=== PATIENT | male | born 1935 | race Caucasian/White ===

== ENCOUNTER → 2017-09-08 | Outpatient (CLI) | payer MEDICARE ==
[~2017-09-08] MED LIST: IOHEXOL 300 MG/ML 100ML VIAL.; LIDOCAINE WITH 8.4% SOD BICARB 3 ML DISP.SYRIN.; MIDAZOLAM HCL/PF 2 MG/2 ML VIAL.; fentaNYL PF VIAL 100 MCG/2 ML VIAL
[2017-09-08 13:11] LABS: ADD MAN DIFF? NO
[2017-09-08 13:15] LABS: BASO % 1 % (0-3); EOS # 0.2 x10^3/uL (0.0-0.7); EOS % 3 % (0-3); HEMATOCRIT 37.6 % (39.0-53.0); HEMOGLOBIN 12.6 g/dL (13.0-17.5); LYMPH # 2.3 x10^3/uL (1.0-4.8); LYMPH % 33 % (24-48); MEAN CORPUSCULAR HEMOGLOBIN 30 pg (25-35); MEAN CORPUSCULAR HGB CONC 34 g/dL (31-37); MEAN CORPUSCULAR VOLUME 89 fL (79-100); MONO # 0.6 x10^3/uL (0.0-1.1); MONO % 8 % (0-9); NEUT % 56 % (31-73); PLATELET COUNT 206 x10^3/uL (140-400); RED BLOOD COUNT 4.22 x10^6/uL (4.30-5.70); RED CELL DISTRIBUTION WIDTH 14.5 % (11.5-14.5); WHITE BLOOD COUNT 7.1 x10^3/uL (4.0-11.0)
[2017-09-08 13:25] LABS: INR 1.1 (0.8-1.1); PROTHROMBIN TIME PATIENT 13.2 SEC (11.7-14.0)
== END | disposition home or self-care (01) ==
LOC: INTRAD 11:54
DX: K57.80 Diverticulitis of intestine, part unspecified, with perforation and abscess without bleeding (principal); E78.00 Pure hypercholesterolemia, unspecified; M19.90 Unspecified osteoarthritis, unspecified site; F17.200 Nicotine dependence, unspecified, uncomplicated; Z86.39 Personal history of other endocrine, nutritional and metabolic disease; Z98.41 Cataract extraction status, right eye; Z98.42 Cataract extraction status, left eye; Z87.39 Personal history of other diseases of the musculoskeletal system and connective tissue
CPT/HCPCS: 36415; 74150; 85025; 85610

== ENCOUNTER → 2017-09-22 | Outpatient (CLI) | payer MEDICARE ==
[~2017-09-22] MED LIST changes: +IOHEXOL 240 MG/ML 50ML VIAL. PO; -IOHEXOL 300 MG/ML 100ML VIAL.; +IOHEXOL 300 MG/ML 100ML VIAL. IV; -LIDOCAINE WITH 8.4% SOD BICARB 3 ML DISP.SYRIN.; -MIDAZOLAM HCL/PF 2 MG/2 ML VIAL.; -fentaNYL PF VIAL 100 MCG/2 ML VIAL
[2017-09-22] MEDS: IOHEXOL 240 MG/ML 50ML VIAL. PO ×2 (12:20)
[2017-09-22] MEDS: IOHEXOL 300 MG/ML 100ML VIAL. IV ×2 (12:20)
== END | disposition home or self-care (01) ==
LOC: CT 10:46
DX: L02.818 Cutaneous abscess of other sites (principal); M51.36 Other intervertebral disc degeneration, lumbar region
CPT/HCPCS: 74177

== ENCOUNTER → 2017-10-16 | Outpatient (CLI) | payer MEDICARE ==
[~2017-10-16] MED LIST changes: +CONTRAST GIVEN MC; -IOHEXOL 240 MG/ML 50ML VIAL. PO; -IOHEXOL 300 MG/ML 100ML VIAL. IV
[2017-10-16] MEDS: IOHEXOL 240 MG/ML 50ML VIAL. PO (11:49)
[2017-10-16] MEDS: IOHEXOL 300 MG/ML 100ML VIAL. IV (11:49)
== END | disposition home or self-care (01) ==
LOC: CT 10:21
DX: K57.20 Diverticulitis of large intestine with perforation and abscess without bleeding (principal); N42.89 Other specified disorders of prostate
CPT/HCPCS: 74177; Q9966; Q9967

== ENCOUNTER 2018-09-19 21:13 | Emergency (ER) | payer MEDICARE ==
[~2018-09-19] VITALS: Ht 182.9 cm; Wt 70.3 kg
[~2018-09-19 21:13] MED LIST changes: +ASPI-482 PO; +ATOR10TA60 PO; +ATOR20TA58 PO; +ATROPINE 0.5 MG/5 ML DISP.SYRINGE. ONE; +CALC1TAB PO; +CALCIUM CHLORIDE 1,000 MG/10 ML DISP.SYRIN ONE; +CIPR500T94 PO; -CONTRAST GIVEN MC; +EPINEPHrine SYRINGE 1 MG/10 ML SYRINGE ONE; +FISH1CAP PO; +FLEC100T PO; +FOLI0.4T2 PO; +LEVO50TA5 PO; +MECL25TA3 PO; +METR-34 PO; +MULT-658 PO; +NAPR220T70 PO; +PROP20TA PO; +SODIUM BICARB ADULT 8.4% 50 MEQ/50 ML DISP.SYRIN. ONE; +TAMS0.4C2 PO; +TIZA4TAB PO
[2018-09-19 21:39] LABS: BASO # 0.1 x10^3/uL (0.0-0.2); BASO % 0 % (0-3); EOS # 0.2 x10^3/uL (0.0-0.7); EOS % 1 % (0-3); HEMATOCRIT 35.1 % (39.0-53.0); HEMOGLOBIN 11.5 g/dL (13.0-17.5); LYMPH # 7.7 x10^3/uL (1.0-4.8); LYMPH % 48 % (24-48); MEAN CORPUSCULAR HEMOGLOBIN 30 pg (25-35); MEAN CORPUSCULAR HGB CONC 33 g/dL (31-37); MEAN CORPUSCULAR VOLUME 91 fL (79-100); MONO # 1.1 x10^3/uL (0.0-1.1); MONO % 7 % (0-9); NEUT # 6.9 x10^3uL (1.8-7.7); NEUT % 43 % (31-73); PLATELET COUNT 164 x10^3/uL (140-400); RED BLOOD COUNT 3.87 x10^6/uL (4.30-5.70); RED CELL DISTRIBUTION WIDTH 14.7 % (11.5-14.5); WHITE BLOOD COUNT 15.9 x10^3/uL (4.0-11.0)
[2018-09-19 21:45] LABS: CREATININE ISTAT 1.1 mg/dL (0.5-1.4); HEMOGLOBIN ISTAT 11.2 g/dL (14-18); ION CA ISTAT 1.18 mmol/L (1.13-1.32); POTASSIUM ISTAT 4.6 mmol/L (3.5-5.0)
[2018-09-19] MEDS ORDERED: NOREPINEPHRIN 8MG/250ML PREMIX 250 ML IV PRN (21:45)
[2018-09-19 21:48] LABS: PROTHROMBIN TIME PATIENT 14.7 SEC (11.7-14.0)
[2018-09-19 21:49] LABS: BILIRUBIN,URINE NEGATIVE (NEG); CLARITY,URINE CLEAR; COLOR,URINE YELLOW; NITRITE,URINE NEGATIVE (NEG); PH,URINE 5.5; PROTEIN,URINE NEGATIVE (NEG-TRACE); UROBILINOGEN,URINE 0.2 mg/dL (0.2 mg/dL)
[2018-09-19 21:54] LABS: CALCIUM 8.7 mg/dL (8.5-10.1); CREATININE 1.3 mg/dL (0.7-1.3); GFR 52.7; POTASSIUM 4.9 mmol/L (3.5-5.1)
[2018-09-19 21:55] LABS: BACTERIA,URINE 0 /HPF (0-FEW); HYALINE CASTS, URINE OCCASIONAL /HPF; RBC,URINE 0 /HPF (0-2); SQUAMOUS EPITHELIAL CELL,UR OCC /LPF
[2018-09-19 22:00] LABS: ALBUMIN 2.7 g/dL (3.4-5.0); ALBUMIN/GLOBULIN RATIO 0.8 (1.0-1.7); MAGNESIUM 2.1 mg/dL (1.8-2.4); TOTAL BILIRUBIN 0.4 mg/dL (0.2-1.0)
[2018-09-19] MEDS ORDERED: IV NORMAL SALINE 1000ML BAG 1,000 ML IV SCH (22:00)
[2018-09-19] MEDS ORDERED: CONTRAST GIVEN. MC PRN (22:00)
[2018-09-19] MEDS ORDERED: IOHEXOL 350 MG/ML 100 ML VIAL. IV ONE (22:00)
[2018-09-19 22:05] LABS: BASE EXCESS ABG -13 mmol/L (-3-3); HCO3 ABG 14 mmol/L (21-28); PCO2 ABG 36 mmHg (35-46); PO2 ABG 342 mmHg (65-108); SAT O2 ABG 99 % (92-99)
[2018-09-19] MEDS ORDERED: ETOMIDATE 20 MG/10 ML VIAL. IV ONE (22:30)
[2018-09-19] MEDS ORDERED: VECURONIUM BOLUS 10 MG VIAL. IV ONE (22:32)
[2018-09-19] MEDS ORDERED: EPINEPHrine VIAL 30 MG/30 ML VIAL ONE (22:44)
[2018-09-19] MEDS ORDERED: ATROPINE 1 MG/10 ML DISP.SYRINGE. ONE (22:44)
[2018-09-19 22:55] VITALS: BP 200/118
--- NOTE | 2018-09-19 23:41 | PHYS DOC ---
Past Medical History Past Medical History: Diabetes-Type II, Other Additional Past Medical Histor: chronic back pain Past Surgical History: Other Additional Past Surgical Histo: back Alcohol Use: None Drug Use: None Adult General Chief Complaint Chief Complaint: CPR/FULL ARREST HPI HPI Patient is a 82 year old male brought in by EMS due to weakness. They found that he was in a bradycardic rhythm. EMS administered lidocaine due to the wide complexes as well. History is limited due to the critical and unstable patient. According to family he had been having some abdominal and back pain for the past several days and was supposed to be seeing his doctor soon. [] Review of Systems Review of Systems Unable to obtain due to the unstable and critical nature of the patient All other systems were reviewed and found to be within normal limits, except as documented in this note. Current Medications Current Medications Current Medications Medications (Trade) Dose Ordered Sig/Elliot Start Time Stop Time Status Last Admin Dose Admin Atropine Sulfate (ATROPINE 1mg SYRINGE) 1 mg STK-MED ONCE 09/19/18 22:44 09/19/18 22:45 DC Epinephrine HCl (Adrenalin) 30 mg STK-MED ONCE 09/19/18 22:44 09/19/18 22:45 DC Epinephrine HCl 4 mg/Sodium Chloride 254 ml @ 3.81 mls/hr 1X ONCE 09/19/18 22:30 09/22/18 17:09 Etomidate (Amidate) 20 mg STK-MED ONCE 09/19/18 22:30 09/19/18 22:31 DC Info (CONTRAST GIVEN -- Rx MONITORING) 1 each PRN DAILY PRN 09/19/18 22:00 09/21/18 21:59 Iohexol (Omnipaque 350 Mg/ml) 100 ml 1X ONCE 09/19/18 22:00 09/19/18 22:01 DC Norepinephrine Bitartrate 250 ml @ 1.875 mls/ hr CONT PRN 09/19/18 21:45 09/20/18 21:44 Sodium Chloride 1,000 ml @ 1,000 mls/hr Q1H 09/19/18 22:00 09/19/18 22:59 DC Vecuronium Rogers (Norcuron Bolus) 10 mg STK-MED ONCE 09/19/18 22:32 09/19/18 22:33 DC Allergies Allergies Allergies Coded Allergies Type Severity Reaction Last Updated Verified No Known Drug Allergies 11/27/15 No Physical Exam Physical Exam Constitutional: Cachectic, minimally responsive [] HENT: Normocephalic, atraumatic, bilateral external ears normal, oropharynx moist, no oral exudates, nose normal. [] Eyes: PERRLA, EOMI, conjunctiva normal, no discharge. [] Neck: Normal range of motion, no tenderness, supple, no stridor. [] Cardiovascular: Heart rate was bradycardic[] Lungs & Thorax: Receiving bag valve ventilations because of limited respiratory effort[] Abdomen: Bowel sounds normal, soft, no tenderness, no masses, no pulsatile masses. [] Skin: Warm, diaphoretic, no erythema, no rash. [] Back: No tenderness, no CVA tenderness. [] Extremities: No tenderness, no cyanosis, no clubbing, ROM intact, no edema. [] Neurologic: Minimally responsive, would shake his head up and down the left and right for yes and no respectively.. [] Psychologic: Unable to assess[] Current Patient Data Vital Signs Vital Signs Date Time Temp Pulse Resp B/P (MAP) Pulse Ox O2 Delivery O2 Flow Rate FiO2 09/19/18 21:58 Ventilator 09/19/18 21:13 97.6 48 12 95 97.6 Lab Values Laboratory Tests Test 09/19/18 21:22 09/19/18 21:28 09/19/18 21:30 09/19/18 21:32 White Blood Count 15.9 x10^3/uL (4.0-11.0) H Red Blood Count 3.87 x10^6/uL (4.30-5.70) L Hemoglobin 11.5 g/dL (13.0-17.5) L Hematocrit 35.1 % (39.0-53.0) L Mean Corpuscular Volume 91 fL (79-100) Mean Corpuscular Hemoglobin 30 pg (25-35) Mean Corpuscular Hemoglobin Concent 33 g/dL (31-37) Red Cell Distribution Width 14.7 % (11.5-14.5) H Platelet Count 164 x10^3/uL (140-400) Neutrophils (%) (Auto) 43 % (31-73) Lymphocytes (%) (Auto) 48 % (24-48) Monocytes (%) (Auto) 7 % (0-9) Eosinophils (%) (Auto) 1 % (0-3) Basophils (%) (Auto) 0 % (0-3) Neutrophils # (Auto) 6.9 x10^3uL (1.8-7.7) Lymphocytes # (Auto) 7.7 x10^3/uL (1.0-4.8) H Monocytes # (Auto) 1.1 x10^3/uL (0.0-1.1) Eosinophils # (Auto) 0.2 x10^3/uL (0.0-0.7) Basophils # (Auto) 0.1 x10^3/uL (0.0-0.2) Prothrombin Time 14.7 SEC (11.7-14.0) H Prothrombin Time INR 1.2 (0.8-1.1) H Sodium Level 142 mmol/L (136-145) Potassium Level 4.9 mmol/L (3.5-5.1) Chloride Level 105 mmol/L (98-107) Carbon Dioxide Level 24 mmol/L (21-32) Anion Gap 13 (6-14) 17 mmol/L (6-14) H Blood Urea Nitrogen 35 mg/dL (8-26) H Creatinine 1.3 mg/dL (0.7-1.3) Estimated GFR (Cockcroft-Gault) 52.7 BUN/Creatinine Ratio 27 (6-20) H Glucose Level 272 mg/dL (70-99) H 256 mg/dL (70-99) H Calcium Level 8.7 mg/dL (8.5-10.1) Magnesium Level 2.1 mg/dL (1.8-2.4) Total Bilirubin 0.4 mg/dL (0.2-1.0) Aspartate Amino Transferase (AST) 19 U/L (15-37) Alanine Aminotransferase (ALT) 15 U/L (16-63) L Alkaline Phosphatase 86 U/L (46-116) Troponin I Quantitative 0.170 ng/mL (0.000-0.055) RI-Ijd-J-Type Natriuretic Peptide 8309 pg/mL (0-449) H Total Protein 6.0 g/dL (6.4-8.2) L Albumin 2.7 g/dL (3.4-5.0) L Albumin/Globulin Ratio 0.8 (1.0-1.7) L Lipase 55 U/L (73-393) L POC Troponin I 0.11 ng/ml (<0.08) Urine Color Yellow Urine Clarity Clear Urine pH 5.5 Urine Specific [place] >=1.030 Urine Protein Negative mg/dL (NEG-TRACE) Urine Glucose (UA) 100 mg/dL (NEG) Urine Ketones (Stick) Negative mg/dL (NEG) Urine Blood Negative (NEG) Urine Nitrite Negative (NEG) Urine Bilirubin Negative (NEG) Urine Urobilinogen Dipstick 0.2 mg/dL (0.2 mg/dL) Urine Leukocyte Esterase Negative (NEG) Urine RBC 0 /HPF (0-2) Urine WBC 1-4 /HPF (0-4) Urine Squamous Epithelial Cells Occ /LPF Urine Bacteria 0 /HPF (0-FEW) Urine Hyaline Casts Occasional /HPF Urine Mucus Mod /LPF POC Hemoglobin 11.2 g/dL (14-18) L POC Hematocrit 33 % (37-52) L POC Sodium 140 mmol/L (135-145) POC Potassium 4.6 mmol/L (3.5-5.0) POC Chloride 107 mmol/L (98-110) POC Total CO2 22 mmol/L (23-32) L POC Blood Urea Nitrogen 33 mg/dL (8-26) H POC Creatinine 1.1 mg/dL (0.5-1.4) POC Ionized Calcium ([place]) 1.18 mmol/L (1.13-1.32) Test 09/19/18 21:38 O2 Saturation 99 % (92-99) Arterial Blood pH 7.20 (7.35-7.45) *L Arterial Blood pCO2 at Patient Temp 36 mmHg (35-46) Arterial Blood pO2 at Patient Temp 342 mmHg (65-108) H Arterial Blood HCO3 14 mmol/L (21-28) L Arterial Blood Base Excess -13 mmol/L (-3-3) L Laboratory Tests 09/19/18 21:22 Laboratory Tests 09/19/18 21:22 09/19/18 21:32 EKG EKG EKG showed a junctional rhythm at 45 bpm, ST depressions in V2 and V3. Left axis deviation, QTC of 518 ms, this was interpreted by me at 26/08/15, this was different than his previous EKG of 11/30/2015 where he was in a sinus rhythm at that time.[] Radiology/Procedures Radiology/Procedures [] Course & Med Decision Making Course & Med Decision Making Pertinent Labs and Imaging studies reviewed. (See chart for details) ED course: Patient arrived, was placed in the ER bed from the EMS cot. He was promptly intubated after asking him if he wanted this to be done and he responded by shaking his head up and down. This was accomplished without any complications utilizing a Mac 4 blade and a 7.5 ET tube. There was color change on the capnometer, there were bilateral breath sounds and no gastric sounds. No complications from this procedure. Patient was started on multiple infusions of U active medicines please see the code sheets for the details. These included dopamine and norepinephrine and epinephrine. Patient received multiple rounds of CPR and transcutaneous pacing. Ultimately these proved futile and patient was pronounced at 2319. Critical care time of 90 minutes outside of procedures for discussion with consultants, direct patient care, and discussion with family members.[] Dragon Disclaimer Dragon Disclaimer This electronic medical record was generated, in whole or in part, using a voice recognition dictation system. Departure Departure Impression: Primary Impression: Junctional rhythm Additional Impressions: ACS (acute coronary syndrome) Cardiac arrest Disposition: 20 Referrals: MARGARITA MARION MD (PCP) Problem Qualifiers SERENA WYATT DO Sep 19, 2018 23:41
--- NOTE | 2018-09-20 08:25 | EKG ---
[facility] [address] [place] [address] Test Date: 2018-09-19 Test Time: 21:16:22 Pat Name: KAYCEE MARINELLI Department: Room: Gender: [employer] Helper: : [id number] Requested By: SERENA WYATT Order Number: [id number] Reading MD: Checo Gutierrez Measurements Intervals [place] Rate: P: DE: QRS: QRSD: T: QT: QTc: Interpretive Statements Compared to ECG 11/30/2015 15:10:58 Sinus rhythm no longer present Electronically Signed On 09-26-2018 8:21:12 [employer]OW PLOW OPERATOR by Checo Gutierrez
== END 2018-09-20 04:20 | disposition expired ==
LOC: ER 21:13
DX: I46.9 Cardiac arrest, cause unspecified (principal); I24.9 Acute ischemic heart disease, unspecified; I49.8 Other specified cardiac arrhythmias; E11.9 Type 2 diabetes mellitus without complications; G89.29 Other chronic pain
CPT/HCPCS: 31500; 36415; 36600; 51702; 80047; 80053; 81001; 82805; 82962; 83690; 83735; 83880; 84484; 85025; 85610; 92950; 93005; 99291; 99292; J0171; J0461; J3490; 94002